=== PATIENT | male | born 1955 | race Caucasian/White ===

== ENCOUNTER 2024-11-26 07:10 | Emergency (ER) | payer MEDICARE, SELFPAY ==
[2024-11-26 07:18] VITALS: BP 186/115
--- NOTE | 2024-11-26 07:59 | ED.GENMED ---
History of Present Illness
General
Chief Complaint: Back Pain
Source: patient
Time Seen by Provider: 11/26/24 07:39
History of Present Illness
History of Present Illness:
69-year-old male presents to the emergency room complaining of 'sciatica'. Patient has been having pain in his low back radiating down his right leg down to the ankle. Patient states the pain began about 2 weeks ago. He does not recall any injury
or movement which elicited the pain initially. He has been seen by his chiropractor 3 times but has not had any improvement. The pain is worse at night. He denies any weakness/numbness. He denies any bowel or bladder dysfunction.
Phy Exam
Physical Exam
Physical Exam:
General: Awake, Alert, Oriented X3. No acute distress.
Vitals: unremarkable
Head: Atraumatic
Eyes: Pupils equal, EOMI
Throat: Airway intact, no exudates
Neck: Trachea midline
Lungs: Clear and equal b/l
Heart: Regular rate, no murmurs
Abd: Soft, Nontender, No pulsatile mass
Back: No CVA tenderness to percussion, no pain to percussion or palpation of the midline spine, some tenderness tightness noted lower right lumbar paraspinal musculature
Neuro: Muscle strength intact, reflexes intact, sensation intact
Skin: Warm, dry, no rash
Extremities: pulses equal b/l, no edema
Course
Orders/Labs/Results
Orders:
Orders
11/26/24 07:57
Ibuprofen [Motrin] 600 mg PO NOW STA
Lumbar Spine Complete, 4 View [CR Lumbar Spine Comp Min 4 Vw*] Urgent
Comment:
Reason For Exam: lumb back pain radiating to right leg
11/26/24 08:37
Prednisone [Deltasone] 50 mg PO NOW STA
Vital Signs
Initial and Last Documented VS:
Initial Vital Signs
Temp Pulse Resp BP Pulse Ox
98.0 F 75 18 186/115 98
11/26/24 07:18 11/26/24 07:18 11/26/24 07:18 11/26/24 07:18 11/26/24 07:18
Last Documented Vital Signs
Temp Pulse Resp BP Pulse Ox
98.0 F 75 18 186/115 98
11/26/24 07:18 11/26/24 07:18 11/26/24 07:18 11/26/24 07:18 11/26/24 07:18
MDM/Problems Addressed
Differential Diagnosis Includes:
Muscle strain, lumbar radiculopathy, compression fracture
MDM/Problems Addressed:
Imaging shows no compression fracture or lytic lesions. He does have DJD. Suspect patient is having lumbar radiculopathy. Will treat with an oral course of steroids have him follow-up with Dr. English.
*Radiology
Radiology exam reviewed: preliminary read by ED provider (No acute fracture)
*Pulse Oximetry
Patient hypoxic: no
*Critical Care Note
Total Time (30-74mins, 75-104mins- exclusive of procedures): Not Applicable
ED Attending Note
-
Portions of this chart may have been created with voice recognition software.� Occasional wrong word or��sound alike� substitutions may have occurred due to the inherent limitations of voice recognition software.
Discharge Plan
Departure
Patient Disposition: Home (Routine Discharge)
Date of Disposition: 11/26/24
Time of Disposition: 08:35
Patient with high blood pressure during this ER visit?: Yes
Condition: Good
Discharge Problem:
Acute lumbar radiculopathy
Instructions: Radiculopathy (DC), BLOOD PRESSURE
Prescriptions:
New
prednisone 20 mg tablet
40 mg PO DAILY Qty: 10 0RF
Referrals:
Daryn English MD [Active] -
Rafy Laboy DO [Family Provider] -
Activity Restrictions/Additional Instructions:
The x-rays of your lumbar spine show arthritic type changes but no broken bones or findings to suggest a serious problem at this point. You may need an MRI as an outpatient to better visualize the discs and other structures. Because your pain
radiates down your leg I believe you have a irritation of the nerve coming out of the spine. We will treat this with a course of oral steroids. I given you the contact information for Dr. Daryn English who is a pain management doctor who
specializes in procedures to help your situation such as epidural injections. Call the office today for an appointment. You can continue to take Tylenol every 6 hours for pain as well as ibuprofen 400 mg every 6 hours.
Interventions
Interventions:
*Risk Screen - Suicide Last Done: 11/26/24 07:18
*General Assessment Last Done: 11/26/24 07:18
*Neglect/Abuse Screening Last Done: 11/26/24 07:18
*ED- Fall Risk Assessment Last Done: 11/26/24 08:19
*ED COVID-19 Vaccine History Last Done: 11/26/24 08:19
*Nursing Disposition Last Done: 11/26/24 09:18
ED-Musculoskeletal Assessment Last Done: 11/26/24 09:00
Discharge Date and Time
Discharge Date/Time: 11/26/24 09:19
Print Language: BRUNEIAN
[2024-11-26] MEDS: MOTRIN 600 MG PO (08:06)
[2024-11-26 08:07] VITALS: BMI 26.5
[2024-11-26] MEDS: DELTASONE 50 MG PO (08:53)
== END 2024-11-26 09:19 | disposition home or self-care (01) ==
LOC: EMR 07:10
PROVIDERS: EMERGENCY PHYSICIAN Emergency Medicine; FAMILY PHYSICIAN Family Medicine
DX: M51.17 Intervertebral disc disorders with radiculopathy, lumbosacral region (principal)
CPT/HCPCS: 99283; 72110

== ENCOUNTER 2024-12-01 10:38 | Emergency (ER) | payer MEDICARE, SELFPAY ==
[2024-12-01 10:39] VITALS: BP 127/79
[2024-12-01] MEDS: FLEXERIL 10 MG PO (11:26)
[2024-12-01] MEDS: TORADOL 30 MG IM (11:26)
--- NOTE | 2024-12-01 11:59 | ED.GENMED ---
History of Present Illness
General
Chief Complaint: Back Pain
Source: patient
Exam Limitations: none
Time Seen by Provider: 12/01/24 11:01
Nursing documentation reviewed up to this point in time: agreed with
History of Present Illness
History of Present Illness:
69-year-old male presenting to the emergency department today with concerns of low back pain with radiation down his right leg. Diagnosed with likely sciatica few days ago had hip injection by his primary care doctor few days ago as well also has
been taking steroids without significant proved. He felt that he had some difficulty standing up and ambulating today and come back to the ER.
Review of Systems
Review of Systems
Allergies reviewed?: Yes
All Other Systems: ROS reviewed and negative except as documented in HPI and ROS
Phy Exam
Physical Exam
Physical Exam:
GENERAL: Alert , in no apparent distress
EYE: pupils equal and reactive
NECK: Supple, no significant adenopathy.
ENT: o/p clr, mmm.
CARDIAC: Regular rate and rhythm .
LUNGS: Clear breath sounds bilaterally, no acute respiratory distress, no wheezes/rales/rhonchi
ABDOMEN: Soft, without focal tenderness, no r/g, no cvat
NEUROLOGICAL: Alert and oriented, no focal neuro deficits
SKIN: Warm and dry, skin intact.
MUSCULOSKELETAL: No edema, well perfused.
PSYCH: Normal and appropriate interaction.
Course
Orders/Labs/Results
Orders:
Orders
12/01/24 11:19
Cyclobenzaprine HCl [Flexeril] 10 mg PO NOW STA
Ketorolac [Toradol] 30 mg IM NOW STA
Vital Signs
Initial and Last Documented VS:
Initial Vital Signs
Temp Pulse Resp BP Pulse Ox
98.0 F 72 16 127/79 98
12/01/24 10:39 12/01/24 10:39 12/01/24 10:39 12/01/24 10:39 12/01/24 10:39
Last Documented Vital Signs
Temp Pulse Resp BP Pulse Ox
98.0 F 72 16 127/79 98
12/01/24 10:39 12/01/24 10:39 12/01/24 10:39 12/01/24 10:39 12/01/24 10:39
MDM/Problems Addressed
MDM/Problems Addressed:
You came to the emergency department today with concerns of ongoing low back pain with radiation down the right leg. Was here recently with similar symptoms had an x-ray showed arthritis was otherwise treated symptomatically for sciatica. Here
vital signs are normal patient no distress no red flag symptoms no neurologic symptoms. No change in bowel or bladder function. Symptoms are unilateral. Plan for symptomatic treatment. Patient reassessed after receiving Flexeril and Toradol with
significant improvement. Patient walking well. Patient stable for outpatient management return precautions given.
*Critical Care Note
Total Time (30-74mins, 75-104mins- exclusive of procedures): Not Applicable
ED Attending Note
-
Portions of this chart may have been created with voice recognition software.� Occasional wrong word or��sound alike� substitutions may have occurred due to the inherent limitations of voice recognition software.
Discharge Plan
Departure
Patient Disposition: Home (Routine Discharge)
Date of Disposition: 12/01/24
Time of Disposition: 13:01
Patient with high blood pressure during this ER visit?: No
Condition: Good
Covid-19: Not Applicable
Discharge Problem:
Low back pain
Instructions: Low Back Pain (DC), Sciatica (DC)
Prescriptions:
New
cyclobenzaprine 10 mg tablet
10 mg PO HS PRN (Reason: muscle spasm) Qty: 7 0RF
meloxicam 15 mg tablet
15 mg PO DAILY Qty: 14 0RF
No Action
prednisone 20 mg tablet
40 mg PO DAILY Qty: 10 0RF
Referrals:
Daryn English MD [Active] - Follow up in 5-7 days
Rafy Laboy DO [Family Provider] -
Activity Restrictions/Additional Instructions:
You came to the emergency department today with concerns of low back pain. Here you had improvement with the prescribed occasions. Please use these as needed moving forward. Please have closely with the back doctor as needed. Return for any
worsening, new or concerning symptoms.
Interventions
Interventions:
*Risk Screen - Suicide Last Done: 12/01/24 10:39
*General Assessment Last Done: 12/01/24 11:30
*Neglect/Abuse Screening Last Done: 12/01/24 10:39
*ED- Fall Risk Assessment Last Done: 12/01/24 11:30
*ED COVID-19 Vaccine History Last Done: 12/01/24 11:30
ED-Musculoskeletal Assessment Last Done: 12/01/24 11:31
Discharge Date and Time
Print Language: [place]
== END 2024-12-01 13:14 | disposition home or self-care (01) ==
LOC: EMR 10:38
PROVIDERS: EMERGENCY PHYSICIAN Emergency Medicine; FAMILY PHYSICIAN Family Medicine
DX: M54.50 Low back pain, unspecified (principal)
CPT/HCPCS: 99284; 96372